=== PATIENT | female | born 1965 | race Caucasian/White ===

== ENCOUNTER 2017-09-26 21:35 | Emergency (ER) | payer BC, OTHER, SELFPAY ==
[2017-09-26] MEDS ORDERED: methylPREDNISolone Sod Succ/PF 125 MG/2 ML VIAL ONE (22:05)
== END 2017-09-26 22:17 | disposition home or self-care (01) ==
LOC: BURERS 21:35
DX: T78.40XA Allergy, unspecified, initial encounter (principal)
CPT/HCPCS: 96372; J2930